=== PATIENT | male | born 1995 | race American Indian/Alaskan Native ===

== ENCOUNTER 2017-02-06 10:27 | Emergency (ER) | payer SELFPAY ==
[2017-02-06 10:46] VITALS: BP 98/79
[2017-02-06 11:40] LABS: Bilirubin,Urine NEG (Negative); Blood,Urine NEG (Negative); Ketones,Urine NEG (Negative); Leukocyte Esterase,Urine NEG (Negative); Nitrite,Urine NEG (Negative); Protein,Urine <15 mg/dL mg/dL (Negative); WBC,Urine < 1.0 /HPF (0.0-6.0)
--- NOTE | 2017-02-06 14:03 | Emergency Department Report ---
Chief Complaint: Medical Clearance Stated Complaint: STD TESTING Time Seen by Provider: 02/06/17 13:28 - HPI History of Present Illness: Patient is a 21-year-old male who presents to ED stating that he may have been exposed to STD by his girlfriend. Patient states that he would like to get STD testing. Patient denies any fever/dysuria/penile discharge/scrotum swelling or pain/ bleeding or blood in the urine - ROS Review of Systems: See HPI Denies all symptoms - Exam Vital Signs: Vital Signs 02/06/17 10:43 Temperature 98.3 F Pulse Rate 55 L Respiratory 18 Rate Blood Pressure 98/79 O2 Sat by Pulse 98 Oximetry Physical Exam: GENERAL: Alert and oriented x3, no apparent distress, Normal Gait, atraumatic. ABDOMEN: No organomegaly was noted,Positive bowel sounds, soft, and non- distended. . Nontender to palpation on all Quadrants, NO CVA tenderness. UROGENITAL: No scrotal mass, Scrotum non tender to palpation bilaterally, no hernia, no scars or penile discharge. SKIN: Warm and dry, No lesions, No ulceration present. MSE screening note: Focused history and physical exam performed. Due to findings the following was ordered: ED Medical Decision Making - Medical Decision Making 21-year-old male presents with possible STD exposure Urinalysis shows no signs of infection Chlamydia and gonorrhea cultures sent via Urine Discussed this findings with the patient. Discussed the patient's absent from sex for the next 7-10 days. Discussed the call back in 3 days for STD results. I discussed with the patient that I will send him home on prophylaxis treatment and if results are positive from The pharmacy. Vital signs are normal patient is in no acute distress, he understands instructions given ED Disposition for MSE Clinical Impression: Possible exposure to STD Disposition: DC-01 TO HOME OR SELFCARE Is pt being admited?: No Does the pt Need Aspirin: No Condition: Stable Instructions: Sexually Transmitted Diseases (ED), Safe Sex (ED) Additional Instructions: Make sure to follow up with the primary care physician as discussed. Take all your medications as you've been prescribed. If you have any worsening symptoms or develop new symptoms please return to ED immediately. Call back in 3 days for your STD result. Prescriptions: Azithromycin [Zithromax TAB] 500 mg PO QDAY #2 tablet Referrals: PRIMARY CARE, [Primary Care Provider] - 3-5 Days Forms: Work/School Release Form(ED) Time of Disposition: 14:05
== END 2017-02-06 14:27 | disposition home or self-care (01) ==
LOC: ED 10:27
DX: Z00.8 Encounter for other general examination (principal)
CPT/HCPCS: 81001; 87591; 99283